=== PATIENT | female | born 1985 | race Caucasian/White ===

== ENCOUNTER 2017-06-17 06:22 | Day surgery (SDC) | payer OTHER ==
[2017-06-17] MEDS ORDERED: MIDAZOLAM 1 MG/ML 2 ML INJ (07:32)
[2017-06-17] MEDS ORDERED: ROCURONIUM 50 MG INJ ×2 (07:32→07:53)
[2017-06-17] MEDS ORDERED: LIDOCAINE 1% (MDV) 20 ML INJ (07:32)
[2017-06-17] MEDS ORDERED: PROPOFOL 20 ML (07:32)
[2017-06-17] MEDS ORDERED: DEXAMETHASONE 4 MG/ML 1 ML INJ (07:51)
[2017-06-17] MEDS ORDERED: ONDANSETRON 4 MG INJ (07:51)
[2017-06-17] MEDS ORDERED: FAMOTIDINE 20 MG INJ (07:51)
[2017-06-17] MEDS ORDERED: METOCLOPRAMIDE 10 MG INJ IV (08:30)
[2017-06-17] MEDS ORDERED: HYDROmorphONE (0.2 MG/ML) 10ML SYG IV (08:30)
[2017-06-17] MEDS ORDERED: ONDANSETRON 4 MG INJ IV (08:30)
[2017-06-17] MEDS ORDERED: LABETALOL HCL 20MG INJ IV (08:30)
[2017-06-17] MEDS ORDERED: hydrALAzine 20 MG INJ IV (08:30)
[2017-06-17] MEDS ORDERED: SUGAMMADEX SODIUM 200 MG/2 ML VIAL IV (09:06)
[2017-06-17] MEDS ORDERED: KETOROLAC 30 MG INJ (09:11)
[2017-06-17] MEDS ORDERED: MEPERIDINE 25 MG INJ (09:24)
[2017-06-17] MEDS: LIDOCAINE 1%/EPI 30 ML INJ (09:38)
[2017-06-17] MEDS: OXYMETAZOLINE 0.05% 15 ML NAS SPRAY NASAL (09:38)
[2017-06-17] MEDS ORDERED: MEPERIDINE 25 MG INJ IV (10:00)
[2017-06-17] MEDS ORDERED: MEPERIDINE 25 MG INJ IM (10:00)
== END 2017-06-17 12:13 | disposition home or self-care (01) ==
LOC: SDS 06:22
DX: J34.3 Hypertrophy of nasal turbinates (principal); J32.8 Other chronic sinusitis; E03.9 Hypothyroidism, unspecified; I10 Essential (primary) hypertension; E66.01 Morbid (severe) obesity due to excess calories; Z68.41 Body mass index [BMI] 40.0-44.9, adult
CPT/HCPCS: 30140; 88300; 88304

== ENCOUNTER 2017-10-21 11:59 | Emergency (ER) | payer OTHER ==
[2017-10-21 13:07] LABS: URINE BLOOD (Dip) POC Trace-intact (NEGATIVE); URINE GLUCOSE (Dip) POC Negative (NEGATIVE); URINE KETONES (Dip) POC Negative (NEGATIVE); URINE LEUKOCYTE EST (Dip) POC Negative (NEGATIVE); URINE NITRITE (Dip) POC Negative (NEGATIVE); URINE TOTAL PROTEIN POC Negative (NEGATIVE)
[2017-10-21 13:11] LABS: ADD MAN DIFF? NO
[2017-10-21 13:12] LABS: BASOPHILS % 0.4 % (0.0-2.0); EOSINOPHILS # 0.1 10^3/ul (0.0-0.5); EOSINOPHILS % 1.1 % (0.0-7.0); HEMOGLOBIN 12.6 g/dl (12.0-16.0); LYMPHOCYTES # 1.7 10^3/ul (0.8-2.9); LYMPHOCYTES % 15.4 % (15.0-51.0); MEAN CORPUSCULAR HEMOGLOBIN 27.2 pg (29.0-33.0); MEAN CORPUSCULAR HGB CONC 32.3 g/dl (32.0-37.0); MEAN CORPUSCULAR VOLUME 84.2 fl (82.0-101.0); MEAN PLATELET VOLUME 9.4 fl (7.4-10.4); MONOCYTE # 0.7 10^3/ul (0.3-0.9); MONOCYTES % 5.9 % (0.0-11.0); NEUTROPHIL # 8.5 10^3/ul (1.6-7.5); NEUTROPHILS % 76.9 % (39.0-77.0); PLATELET COUNT 362 10^3/UL (140-415); RED BLOOD COUNT 4.63 10^6/ul (4.20-5.40); RED CELL DISTRIBUTION WIDTH 14.7 % (11.5-14.5)
[2017-10-21 13:12] LABS: WHITE BLOOD COUNT 11.1 10^3/ul (4.8-10.8)
[2017-10-21] MEDS: ONDANSETRON 4 MG INJ IV (13:18)
[2017-10-21 13:30] LABS: LIPASE 84 U/L (23-300)
[2017-10-21 13:32] LABS: ALANINE AMINOTRANSFERASE 27 IU/L (13-69); ALBUMIN 4.5 g/dl (3.3-4.9); ALBUMIN/GLOBULIN RATIO 1.28; ALKALINE PHOSPHATASE 65 IU/L (42-121); ANION GAP 14 (8-16); ASPARTATE AMINO TRANSFERASE 20 IU/L (15-46); BILIRUBIN,INDIRECT 0.3 mg/dl (0-1.1); BILIRUBIN,TOTAL 0.3 mg/dl (0.2-1.3); BLOOD UREA NITROGEN 14 mg/dl (7-20); CALCIUM 9.4 mg/dl (8.4-10.2); CARBON DIOXIDE 26 mmol/L (21-31); CHLORIDE 105 mmol/L (97-110); CREATININE 0.82 mg/dl (0.44-1.00); GLUCOSE 98 mg/dl (70-220); POTASSIUM 3.9 mmol/L (3.5-5.1); SODIUM 141 mmol/L (135-144)
[2017-10-21 13:43] LABS: MONOTEST Positive (NEG)
[2017-10-21 13:45] LABS: TROPONIN-I < 0.010 ng/ml (0.000-0.120)
[2017-10-21 14:27] LABS: FREE THYROXINE INDEX (Calc) 2.51 ug/ml (0.65-3.89); T3 UPTAKE 41.2 % (23.5-40.5); T4 (THYROXINE) 6.1 ug/dl (5.5-11.0)
[2017-10-21] MEDS: DIPHENHYDRAMINE 50 MG INJ IV (15:52)
[2017-10-21] MEDS: METOCLOPRAMIDE 10 MG INJ IV (15:52)
[2017-10-21] MEDS: SOD CHLORIDE 0.9% 1,000 ML IV (15:58)
== END 2017-10-21 16:37 | disposition home or self-care (01) ==
LOC: FTE 11:59
DX: B27.90 Infectious mononucleosis, unspecified without complication (principal); I10 Essential (primary) hypertension
CPT/HCPCS: 71045; 80053; 81003; 81025; 83690; 84436; 84443; 84479; 84484; 85025; 86308; 87070; 87880; 93005; 96361; 96374; 96375; 99285-25

== ENCOUNTER 2018-01-27 07:55 | Day surgery (SDC) | payer OTHER ==
[~2018-01-27 07:55] MED LIST: ROCURONIUM 50 MG INJ
[2018-01-27] MEDS ORDERED: MIDAZOLAM 1 MG/ML 2 ML INJ (09:58)
[2018-01-27] MEDS ORDERED: FENTAnyl 50 MCG/ML VIAL (09:58)
[2018-01-27] MEDS ORDERED: PROPOFOL 20 ML (11:06)
[2018-01-27] MEDS ORDERED: LIDOCAINE 2% (SDV) 5 ML INJ (11:06)
[2018-01-27] MEDS ORDERED: GLYCOPYRROLATE 0.4 MG INJ (11:06)
[2018-01-27] MEDS ORDERED: ONDANSETRON 4 MG INJ (11:06)
[2018-01-27] MEDS ORDERED: NEOSTIGMINE 3 MG/3 ML SYRINGE (11:06)
[2018-01-27] MEDS ORDERED: HYDROCODONE/APAP (7.5/325) TAB PO (12:10)
[2018-01-27] MEDS: FENTAnyl 50 MCG/ML VIAL IV (12:11)
[2018-01-27] MEDS ORDERED: FENTAnyl 50 MCG/ML VIAL IV (13:00)
[2018-01-27] MEDS ORDERED: ONDANSETRON 4 MG INJ IV (13:00)
[2018-01-27] MEDS ORDERED: HYDROmorphONE 1 MG/5 ML IV SYRINGE IV ×2 (13:00)
[2018-01-27] MEDS ORDERED: DIPHENHYDRAMINE 50 MG INJ IV (13:00)
[2018-01-27] MEDS ORDERED: MEPERIDINE 25 MG INJ IV (13:00)
[2018-01-27] MEDS ORDERED: METOCLOPRAMIDE 10 MG INJ IV (13:00)
== END 2018-01-27 13:34 | disposition home or self-care (01) ==
LOC: SDS 07:55
DX: J35.01 Chronic tonsillitis (principal)
CPT/HCPCS: 42826; 88304